=== PATIENT | female | born 1970 | race Caucasian/White ===

== ENCOUNTER 2021-09-17 05:58 | Observation (INO) ==
[2021-09-17] MEDS ORDERED: CeFAZolin Syr 2,000MG/20 ML 2,000 MG/20 ML SYRINGE IVPB ONE (06:47)
[2021-09-17] MEDS ORDERED: Famotidine 20 MG TABLET PO ONE (07:00)
[2021-09-17] MEDS ORDERED: *HR* OxyCODONE Immed Rel 5 MG TABLET PO ONE (07:00)
[2021-09-17] MEDS ORDERED: Ringers Solution, Lactated 1,000 ML IVC SCH ×2 (07:00→15:12)
[2021-09-17] MEDS ORDERED: Gabapentin 300 MG CAPSULE PO ONE (07:00)
[2021-09-17] MEDS ORDERED: tiZANidine 4 MG TABLET PO ONE (07:00)
[2021-09-17] MEDS ORDERED: *HR* Labetalol 20 MG/4 ML SYRINGE IVP PRN (07:12)
[2021-09-17] MEDS ORDERED: *HR* FentaNYL (PF) 100 MCG/2 ML VIAL IVP PRN (07:12)
[2021-09-17] MEDS ORDERED: *HR* Meperidine 25 MG/ML SYRINGE IVP PRN (07:12)
[2021-09-17] MEDS ORDERED: *HR* OxyCODONE Immed Rel 5 MG TABLET PO PRN (07:12)
[2021-09-17] MEDS ORDERED: Ipratropium Neb 0.5 MG NEBULIZER IH PRN (07:12)
[2021-09-17] MEDS ORDERED: Ondansetron 4 MG/2 ML VIAL IVP PRN ×2 (07:12→15:12)
[2021-09-17] MEDS ORDERED: Promethazine 6.25 MG in Water for inj. (sterile) 20 ML IVPB PRN (07:12)
[2021-09-17] MEDS ORDERED: Albuterol 2.5 MG/3 ML NEBULIZER IH PRN (07:12)
[2021-09-17] MEDS ORDERED: Vancomycin 1,000 MG VIAL ONE (07:37)
[2021-09-17] MEDS ORDERED: *HR* Propofol 200 MG/20 ML VIAL IVP ONE ×2 (08:01→10:21)
[2021-09-17] MEDS ORDERED: *HR* Midazolam HCl 2 MG/2 ML VIAL ONE (08:01)
[2021-09-17] MEDS ORDERED: *HR* FentaNYL (PF) 100 MCG/2 ML VIAL ONE (08:01)
[2021-09-17] MEDS ORDERED: Ondansetron 4 MG/2 ML VIAL ONE (08:02)
[2021-09-17] MEDS ORDERED: Lidocaine -MPF 2% 2 ML VIAL ONE (08:02)
[2021-09-17] MEDS ORDERED: Lidocaine HCL 4 ML Topical Solution (Laryng-O-Jet Kit Sterile Pak) TP ONE (08:02)
[2021-09-17] MEDS ORDERED: *HR* Succinylcholine 200 MG/10 ML VIAL IVP ONE (08:02)
[2021-09-17] MEDS ORDERED: *HR* Rocuronium Bromide 50 MG/5 ML VIAL ONE ×2 (08:02→09:51)
[2021-09-17] MEDS ORDERED: Polymyxin B Sulfate 500,000 UNIT, Sodium Chloride IRRigation 1,000 ML IR ONE (08:15)
[2021-09-17] MEDS ORDERED: EPHEDrine 50 MG/ML VIAL ONE (08:35)
[2021-09-17] MEDS ORDERED: Sugammadex Sodium 200 MG/2 ML VIAL IV ONE (10:00)
[2021-09-17] MEDS ORDERED: *HR* HYDROMORPHONE 2 MG/ML VIAL ONE (10:22)
[2021-09-17] MEDS: *HR* HYDROmorphone PF 0.5 MG/0.5 ML SYRINGE IVP PRN ×3 (13:10→13:41)
[2021-09-17] MEDS ORDERED: Naloxone 0.4 MG/ML INJ IVP PRN (15:12)
[2021-09-17] MEDS ORDERED: SUMAtriptan succinate 50 MG TABLET PO PRN (15:12)
[2021-09-17] MEDS ORDERED: Acetaminophen 325 MG TABLET PO PRN (15:12)
[2021-09-17] MEDS: Gabapentin 300 MG CAPSULE PO SCH ×2 (16:32→19:32)
[2021-09-17] MEDS: *HR* HYDROcodone/Acet 5/325 mg TABLET PO PRN ×2 (16:45→22:50)
[2021-09-17] MEDS: CeFAZolin 2 GM/100 ML BAG IVPB SCH (17:00)
[2021-09-17] MEDS: *HR* OxyCODONE Immed Rel 5 MG TABLET PO PRN (19:32)
[2021-09-18] MEDS: CeFAZolin 2 GM/100 ML BAG IVPB SCH (00:04)
[2021-09-18] MEDS: Baclofen 10 MG TABLET PO PRN ×2 (01:11→11:03)
[2021-09-18] MEDS: *HR* OxyCODONE Immed Rel 5 MG TABLET PO PRN ×4 (03:31→22:37)
[2021-09-18] MEDS: Gabapentin 300 MG CAPSULE PO SCH ×3 (07:51→21:00)
[2021-09-18] MEDS: *HR* HYDROcodone/Acet 5/325 mg TABLET PO PRN ×2 (07:51→16:12)
[2021-09-18] MEDS: amLODIPine 5 MG TABLET PO SCH (07:52)
[2021-09-18] MEDS: lisinopriL 5 MG TABLET PO SCH (07:52)
[2021-09-18] MEDS: Fluticasone Propionate Nasal 50 MCG/SPRAY BOTTLE NS SCH (16:17)
[2021-09-18] MEDS: tiZANidine 4 MG TABLET PO PRN (21:01)
[2021-09-19] MEDS: *HR* OxyCODONE Immed Rel 5 MG TABLET PO PRN ×3 (02:30→20:44)
[2021-09-19] MEDS: *HR* HYDROcodone/Acet 5/325 mg TABLET PO PRN ×2 (05:29→15:21)
[2021-09-19] MEDS: Gabapentin 300 MG CAPSULE PO SCH ×3 (09:17→20:44)
[2021-09-19] MEDS: amLODIPine 5 MG TABLET PO SCH (09:18)
[2021-09-19] MEDS: lisinopriL 5 MG TABLET PO SCH (09:18)
[2021-09-19] MEDS: tiZANidine 4 MG TABLET PO PRN (15:21)
[2021-09-19] MEDS: Fluticasone Propionate Nasal 50 MCG/SPRAY BOTTLE NS SCH (20:45)
[2021-09-20] MEDS: *HR* OxyCODONE Immed Rel 5 MG TABLET PO PRN ×2 (00:54→08:53)
[2021-09-20] MEDS: tiZANidine 4 MG TABLET PO PRN (00:55)
[2021-09-20] MEDS: Gabapentin 300 MG CAPSULE PO SCH (08:49)
[2021-09-20] MEDS: amLODIPine 5 MG TABLET PO SCH (08:50)
[2021-09-20] MEDS: lisinopriL 5 MG TABLET PO SCH (08:55)
[2021-09-20 10:32] VITALS: BP 115/78; PULSE 68; TEMP 98; O2SAT 96
== END 2021-09-20 12:30 | disposition home or self-care (01) ==
LOC: SDCAOSI 05:58 → 4WAOSI 05:58
PROVIDERS: ADMIT Orthopaedic Surgery Orthopaedic Surgery of the Spine; ATTEND Orthopaedic Surgery Orthopaedic Surgery of the Spine